=== PATIENT | female | born 1995 | race Caucasian/White ===

== ENCOUNTER 2020-06-14 08:25 | Day surgery (SDC) | payer MEDICAID ==
[~2020-06-14] VITALS: Ht 167.6 cm; Wt 93.9 kg
[2020-06-14 08:51] LABS: HEMATOCRIT 40.3 % (36.0-48.0); MCH 27.5 pg (26.0-34.0); MCHC 32.3 g/dL (31.0-37.0); MCV 85.2 fL (80.0-100.0); MEAN PLATELET VOLUME 9.3 fL (7.4-10.4); RBC 4.73 10x6/uL (4.00-5.40); RDW 12.7 % (11.5-14.5); WBC 6.9 10x3/uL (4.8-10.8)
[2020-06-14 09:07] LABS: HCG SERUM NEGATIVE (NEGATIVE)
[2020-06-14 10:46] VITALS: BP 120/66; Ht 167.6 cm; Wt 93.9 kg
[2020-06-14] MEDS ORDERED: MEDROL DOSE PACK4 MG PO (15:08)
[2020-06-14] MEDS ORDERED: HYDROCODON-ACE1 EA10 PO (15:08)
--- NOTE | 2020-06-14 18:40 | NUR ---
1620 MEDICATED FOR PAIN PT ASSISTED UP TO BATHROOM TO URINATE. URINATED ADEQUATE AMT CLEAR YELLOW URINE. 1700 IV REMOVED AND ABLE TO DRESS. INSTRUCTIONS GIVEN AND REVIEWED.
--- NOTE | 2020-06-15 16:23 | OP ---
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 SURGEON: Kim Kimble MD DESCRIPTION AND TECHNIQUE: After induction of general endotracheal anesthesia, the patient was rolled prone on Murali frame. Lumbar spine was prepped and draped in usual sterile fashion. Fluoroscopic x-ray and spinal needle localized the L5-S1 interspace on the right side. A series of dilators were used to advance a METRx retractor, the L5-S1 interspace on the right. This was confirmed with fluoroscopic x-ray. A microscope and Midas Margarito drill were used to perform laminotomy, medial facetectomy, and foraminotomy at L5-S1 on the right. Hypertrophied ligamentum flavum was removed with Cloward rongeurs. Following this, the S1 nerve root was identified and found to be compressed ventrally with a large free fragment disc herniation at L5-S1 on the right. Disc fragments were removed from the canal as well as the disc material was removed from the posterior one-third of the disc space. Following this, the S1 nerve root was decompressed well. The L5 nerve was also inspected and found to have no nerve root compression. Meticulous hemostasis was maintained throughout the wound. The wound was irrigated with copious amounts of Ancef irrigant solution. The retractor was made. The fascia was closed with 2-0 Vicryl suture, the subdermal layer was closed with 3-0 Vicryl suture. The skin was reapproximated with a Prineo dressing. The patient was awakened in good condition and taken to recovery. All counts were reported as correct. Estimated blood loss was minimal. TRANSINT:[id number] Voice Confirmation ID: [id number] DOCUMENT ID: [id number] KIM KIMBLE MD at 1623 CC: [id number] DICTATION DATE: 06/14/20 1514 HELP DESK CONSULTANT: 06/14/20 [id number] [facility] 06/14/20 [id number] [place] [address]
== END 2020-06-14 17:15 | disposition home or self-care (01) ==
LOC: D.OPS 08:25 → D.PAN 11:00 → D.OPS 17:15
PROVIDERS: Anesthesiology; ATTEND Neurological Surgery
DX: M54.16 Radiculopathy, lumbar region (principal); M51.36 Other intervertebral disc degeneration, lumbar region; M53.87 Other specified dorsopathies, lumbosacral region